=== PATIENT | male | born 1940 ===

== ENCOUNTER 2017-05-01 08:09 | Inpatient (IN) | payer OTHER ==
[~2017-05-01] VITALS: Ht 177.8 cm; Wt 80.7 kg
[2017-05-01] MEDS ORDERED: COZAAR25 MG (08:35)
[2017-05-01] MEDS ORDERED: GLIMEPIRIDE4 MG (08:36)
[2017-05-01] MEDS ORDERED: JANUMET XR 1001 EACH (08:36)
[2017-05-01] MEDS ORDERED: CLOPIDOGREL BIS75 MG (08:37)
[2017-05-01] MEDS ORDERED: VENTOLIN HFA18 GM (08:37)
[2017-05-01] MEDS ORDERED: LANTUS SOL100 UNIT/1 (08:37)
[2017-05-01] MEDS ORDERED: METFORMIN HCL1000 MG PO (13:57)
== END 2017-05-11 16:48 | disposition home or self-care (01) | DRG 190 ==
LOC: ER 08:09 → SEC-K 14:20 → MEDJ 14:20 → SEC-K 15:44 → MEDI 15:55 → MEDJ 15:55
PROC: 3E0F7GC Introduction of Other Therapeutic Substance into Respiratory Tract, Via Natural or Artificial Opening (ICD-10-PCS; principal; 2017-05-01)
PROC: 4A033R1 Measurement of Arterial Saturation, Peripheral, Percutaneous Approach (ICD-10-PCS; 2017-05-01)
PROC: B246ZZZ Ultrasonography of Right and Left Heart (ICD-10-PCS; 2017-05-01)
PROC: 4A12X4Z Monitoring of Cardiac Electrical Activity, External Approach (ICD-10-PCS; 2017-05-01)
PROC: BB24ZZZ Computerized Tomography (CT Scan) of Bilateral Lungs (ICD-10-PCS; 2017-05-03)
DX: J44.1 Chronic obstructive pulmonary disease with (acute) exacerbation (principal); J18.8 Other pneumonia, unspecified organism; J90 Pleural effusion, not elsewhere classified; J96.11 Chronic respiratory failure with hypoxia; N17.8 Other acute kidney failure; E87.0 Hyperosmolality and hypernatremia; I50.20 Unspecified systolic (congestive) heart failure; J20.9 Acute bronchitis, unspecified; J44.0 Chronic obstructive pulmonary disease with (acute) lower respiratory infection; I25.10 Atherosclerotic heart disease of native coronary artery without angina pectoris; E78.4 Other hyperlipidemia; L40.8 Other psoriasis; J84.112 Idiopathic pulmonary fibrosis; E87.5 Hyperkalemia; E11.42 Type 2 diabetes mellitus with diabetic polyneuropathy; I11.0 Hypertensive heart disease with heart failure

== ENCOUNTER 2018-09-16 10:37 | Emergency (ER) | payer OTHER ==
[~2018-09-16] VITALS: Ht 175.3 cm; Wt 77.1 kg
[~2018-09-16 10:37] MED LIST: CLOPIDOGREL BIS75 MG; COZAAR25 MG; GLIMEPIRIDE4 MG; JANUMET XR 1001 EACH; LANTUS SOL100 UNIT/1; METFORMIN HCL1000 MG PO; VENTOLIN HFA18 GM
[2018-09-16] MEDS ORDERED: ASPIR 8181 MG (10:49)
[2018-09-16] MEDS ORDERED: ATORVASTATIN CA20 MG (10:49)
== END 2018-09-16 14:12 | disposition home or self-care (01) ==
LOC: ER 10:37
DX: J43.8 Other emphysema (principal); R06.02 Shortness of breath

== ENCOUNTER 2019-06-09 11:25 | Inpatient (IN) | payer OTHER ==
[~2019-06-09] VITALS: Ht 170.2 cm; Wt 74.8 kg
[~2019-06-09 11:25] MED LIST changes: +ASPIR 8181 MG; +ATORVASTATIN CA20 MG
[2019-06-09] MEDS ORDERED: PROSCAR5 MG PO (13:07)
[2019-06-09] MEDS ORDERED: GLIMEPIRIDE2 M1 PO (13:07)
[2019-06-09] MEDS ORDERED: BUMETANIDE1 MG PO (13:07)
[2019-06-14] MEDS ORDERED: METFORMIN HCL1000 MG PO (16:00)
[2019-06-14] MEDS ORDERED: LEVAQUIN500 MG PO (16:00)
[2019-06-14] MEDS ORDERED: FAMOTIDINE40 MG PO (16:00)
[2019-06-14] MEDS ORDERED: CILOSTAZOL100 MG PO (16:00)
[2019-06-14] MEDS ORDERED: CANDESARTAN CILE8 MG PO (16:00)
[2019-06-14] MEDS ORDERED: VENTOLIN HFA18 GM IH (16:00)
[2019-06-14] MEDS ORDERED: Lantus 1000 UNITS/10 SUBCUTANEO (16:00)
[2019-06-14] MEDS ORDERED: DILTIAZEM ER120 M2 PO (16:00)
[2019-06-14] MEDS ORDERED: XOPENEX CO1.25 MG/0. IH (16:00)
[2019-06-14] MEDS ORDERED: CLOPIDOGREL BIS75 MG PO (16:00)
[2019-06-14] MEDS ORDERED: PROSCAR5 MG PO (16:00)
[2019-06-14] MEDS ORDERED: BUMETANIDE1 MG PO (16:00)
== END 2019-06-14 16:52 | disposition home or self-care (01) | DRG 190 ==
LOC: ER 11:25 → MEDJ 20:18 → MEDI 06-10 11:14
PROVIDERS: ADMIT Internal Medicine
PROC: 4A033R1 Measurement of Arterial Saturation, Peripheral, Percutaneous Approach (ICD-10-PCS; principal; 2019-06-09)
PROC: 3E0F7GC Introduction of Other Therapeutic Substance into Respiratory Tract, Via Natural or Artificial Opening (ICD-10-PCS; 2019-06-09)
PROC: B245ZZZ Ultrasonography of Left Heart (ICD-10-PCS; 2019-06-10)
PROC: CB2YYZZ Tomographic (Tomo) Nuclear Medicine Imaging of Respiratory System using Other Radionuclide (ICD-10-PCS; 2019-06-11)
PROC: BW4GZZZ Ultrasonography of Pelvic Region (ICD-10-PCS; 2019-06-12)
PROC: BW40ZZZ Ultrasonography of Abdomen (ICD-10-PCS; 2019-06-12)
DX: J43.9 Emphysema, unspecified (principal); I50.23 Acute on chronic systolic (congestive) heart failure; R18.8 Other ascites; J96.11 Chronic respiratory failure with hypoxia; I11.0 Hypertensive heart disease with heart failure; J84.10 Pulmonary fibrosis, unspecified; I27.20 Pulmonary hypertension, unspecified; I25.10 Atherosclerotic heart disease of native coronary artery without angina pectoris; E11.65 Type 2 diabetes mellitus with hyperglycemia; Z53.29 Procedure and treatment not carried out because of patient's decision for other reasons